=== PATIENT | female | born 1995 | race Caucasian/White ===

== ENCOUNTER 2017-05-18 12:19 | Observation (INO) | payer OTHER ==
[2017-05-18 12:55] VITALS: BP 120/64; PULSE 107
--- NOTE | 2017-05-19 14:43 | XRAY ---
Exam: OB ultrasound greater than 14 weeks from 05/18/2017. Comparison: OB ultrasound greater than 14 weeks from 04/04/2017 and 02/21/2017. Indication: Size measurements greater than dates. Findings: A single live intrauterine fetus is seen in the cephalic lie. cardiac activity was identified with a heart rate of 141 bpm. The placenta is anterior and grade one. There is no evidence of placenta previa. The amniotic fluid index measures 10.1 cm which is within normal limits. Measurements of the biparietal diameter, head circumference, abdominal circumference, and femur length suggest an average composite gestational age of 30 weeks 2 days which represents satisfactory intrauterine growth since the first OB ultrasound examination from 02/21/2017. Estimated due date based on today's size measurements is 07/25/2017 which is in excellent accordance with the gestational age by dates (also 07/25/2017). Estimated weight is 1412 g plus or -211.81 g (3 lbs. 2 oz.+ or -7 ounces) placing the fetus in the 16.3 percentile. The size ratios are all within normal limits except for a slightly elevated femur length to abdominal circumference ratio of 24.29 (normal being 20.00-24.00). Gross survey of the ventricles, spine, four-chamber heart, diaphragm, three-vessel umbilical cord, stomach, kidneys, and urinary bladder appear unremarkable. Impression: 1. Single live intrauterine fetus in the cephalic lie. Today's size measurements suggest a composite gestational age of 30 weeks 2 days which represents satisfactory intrauterine growth since the first OB ultrasound exam from 02/21/2017. Estimated due date is 07/25/2017, which is the same due date as that based on dates. 2. The placenta appears anterior. No placenta previa is seen. 3. Amniotic fluid index measures 10.1 cm which is within normal limits..
== END 2017-05-18 14:13 | disposition home or self-care (01) ==
LOC: OB 12:19
PROVIDERS: ADMIT Family Medicine; ATTEND Family Medicine
DX: Z34.03 Encounter for supervision of normal first pregnancy, third trimester (principal)
CPT/HCPCS: 76805; G0378

== ENCOUNTER 2017-06-02 20:13 | Observation (INO) | payer OTHER ==
[2017-06-02 21:08] LABS: Appearance SLIGHTLY CLOUDY (CLEAR); Bilirubin NEGATIVE (NEGATIVE); Blood NEGATIVE Ery/ul (0-5); Glucose NEGATIVE (NEGATIVE); Ketones NEGATIVE (NEGATIVE); Leukocyte Esterase NEGATIVE (NEGATIVE); Nitrite NEGATIVE (NEGATIVE); Protein,Urine Dip NEGATIVE (Negative); Specific Gravity 1.015 (1.005-1.025); Urobilinogen NORMAL mg/dL (0-1)
[2017-06-02 22:46] VITALS: BP 126/64; PULSE 74
== END 2017-06-02 22:20 | disposition home or self-care (01) ==
LOC: UNDOADMOB 20:13 → OB 20:13 → UNDODISOB 22:20
PROVIDERS: ADMIT Family Medicine; ATTEND Family Medicine
DX: Z34.03 Encounter for supervision of normal first pregnancy, third trimester (principal)
CPT/HCPCS: 81002; G0378

== ENCOUNTER 2017-06-12 10:39 | Observation (INO) | payer OTHER ==
[2017-06-12 10:58] VITALS: BP 134/70; PULSE 93
[2017-06-12 11:03] LABS: Hematocrit 34.2 % (35-47); Hemoglobin 11.2 gm/dl (12.0-16.0); Mean Cell Volume 81.8 fl (78-100); Mean Corpuscular Hgb Concent. 32.7 g/dl (32-36); Mean Platelet Volume 9.3 fl (6-9.5); Platelet Count 229 K/mm3 (150-450); Red Blood Count 4.18 M/mm3 (4.1-5.4); Red Cell Distribution Width 14.4 % (11.5-14.0); White Blood Count 12.3 K/mm3 (4.0-10.5)
[2017-06-12 11:04] LABS: Mean Corpuscular Hemoglobin 26.7 pg (26-32)
[2017-06-12 11:27] LABS: ALBUMIN 3.7 g/dL (3.5-5.0); ALKALINE PHOSPHATASE 118 U/L (38-126); ANION GAP 13.8 MEQ/L (5-15); BLOOD UREA NITROGEN 8 mg/dL (7-17); CHLORIDE 109 mmol/L (98-107); Calcium 9.4 mg/dL (8.4-10.2); Carbon Dioxide 20 mmol/L (22-30); Creatinine 1 0.66 mg/dL (0.52-1.04); Glucose 74 mg/dL (74-106); Potassium 4.3 mmol/L (3.5-5.1); SGOT/AST 11 U/L (14-36); SGPT/ALT 11 U/L (0-35); SODIUM 138 mmol/L (137-145); Total Protein 6.9 g/dL (6.3-8.2); Uric Acid 5.5 mg/dL (2.6-6.0)
== END 2017-06-12 12:10 | disposition home or self-care (01) ==
LOC: OB 10:39
PROVIDERS: ADMIT Family Medicine; ATTEND Family Medicine
DX: Z34.03 Encounter for supervision of normal first pregnancy, third trimester (principal)
CPT/HCPCS: 36415; 59025; 80053; 84550; 85027; G0378

== ENCOUNTER 2017-06-22 16:53 | Observation (INO) | payer OTHER ==
[2017-06-22] MEDS ORDERED: Lactated Ringers 1,000 ML IV SCH (17:00)
[2017-06-22 18:51] VITALS: BP 123/70; PULSE 85
== END 2017-06-22 18:52 | disposition home or self-care (01) ==
LOC: UNDOADMOB 16:53 → MED SURG 16:53 → UNDODISOB 18:52
PROVIDERS: ADMIT Family Medicine; ATTEND Family Medicine
DX: Z34.03 Encounter for supervision of normal first pregnancy, third trimester (principal)
CPT/HCPCS: 36415; 80048; G0378

== ENCOUNTER 2017-07-02 16:23 | Observation (INO) | payer OTHER ==
[2017-07-02 18:53] VITALS: BP 116/66; PULSE 69
--- NOTE | 2017-07-02 19:23 | XRAY ---
Indication: Bleeding. Two-dimensional OB ultrasound performed. Comparison: May 31, 2017. Again there is a single viable intrauterine in cephalic presentation. Normal four-chamber heart with heart rate 132 BPM. Normal three-vessel cord. Visualized stomach and bladder are unremarkable. Placenta again anterior without abruption/previa. BPD measures 9.04 cm corresponding to 36 weeks 4 days. HC measures 31.70 cm corresponding to 35 weeks 4 days. AC measures 31.54 cm corresponding to 35 weeks 3 days. FL measures 7.08 cm corresponding to 36 weeks 2 days. MIRIAM is 13.5 cm. Impression: Single viable intrauterine with mean gestational age 36 weeks 0 day. Normal progression of . No new/acute findings. Comment: Preliminary report was given.
== END 2017-07-02 18:54 | disposition home or self-care (01) ==
LOC: UNDOADMOB 16:23 → OB 16:23 → UNDODISOB 18:54
PROVIDERS: ADMIT Family Medicine; ATTEND Family Medicine
DX: Z34.03 Encounter for supervision of normal first pregnancy, third trimester (principal)
CPT/HCPCS: 76805; G0378

== ENCOUNTER 2017-07-19 12:07 | Inpatient (IN) | payer OTHER ==
[2017-07-19] MEDS ORDERED: BRETHINE 1 MG/ML SQ PRN (17:49)
[2017-07-19] MEDS ORDERED: Cervidil 10 MG VAG SCH (18:00)
[2017-07-19 18:51] LABS: BASOPHIL % 0.1 % (0.0-0.4); Basophil (Absolute #) 0.01 (0-0.4); Eosinophil % 0.9 % (0.00-5.0); Eosinophil (Absolute #) 0.12 (0-0.5); Granulocyte Absolute (ANC) 8.36 (1.4-6.9); Granulocytes % 64.4 % (36.0-66.0); Hematocrit 33.9 % (35-47); Hemoglobin 11.1 gm/dl (12.0-16.0); Lymphocytes % 25.4 % (24.0-44.0); Mean Cell Volume 81.7 fl (78-100); Mean Corpuscular Hemoglobin 26.7 pg (26-32); Mean Corpuscular Hgb Concent. 32.7 g/dl (32-36); Mean Platelet Volume 10.1 fl (6-9.5); Monocyte (Absolute #) 1.19 (0.0-1.3); Monocytes % 9.2 % (0.0-12.0); Platelet Count 228 K/mm3 (150-450); Red Blood Count 4.15 M/mm3 (4.1-5.4); Red Cell Distribution Width 14.9 % (11.5-14.0)
[2017-07-19 21:33] LABS: Amphetamine,Urine NEGATIVE (NEGATIVE); Barbiturate,Urine NEGATIVE (NEGATIVE); Benzodiazepine,Urine NEGATIVE (NEGATIVE); Cocaine,Urine NEGATIVE (NEGATIVE); Methadone,Urine NEGATIVE (NEGATIVE); Opiate,Urine NEGATIVE (NEGATIVE); PCP,Urine NEGATIVE (NEGATIVE); THC,Urine NEGATIVE (NEGATIVE)
[2017-07-20] MEDS: TYLENOL EXTRA STRENGTH 500 MG PO PRN ×2 (04:31→10:21)
[2017-07-20] MEDS ORDERED: PITOCIN 30 UNITS/ LR 500 ML 500 ML IV SCH (07:00)
[2017-07-20] MEDS: Lactated Ringers 1,000 ML IV SCH ×3 (08:07→23:40)
[2017-07-20 12:21] LABS: BASOPHIL % 0.1 % (0.0-0.4); Basophil (Absolute #) 0.01 (0-0.4); Eosinophil % 0.6 % (0.00-5.0); Eosinophil (Absolute #) 0.08 (0-0.5); Granulocyte Absolute (ANC) 8.75 (1.4-6.9); Granulocytes % 67.1 % (36.0-66.0); Hematocrit 35.5 % (35-47); Hemoglobin 11.6 gm/dl (12.0-16.0); Lymphocyte (Absolute #) 3.17 (1.0-4.6); Lymphocytes % 24.3 % (24.0-44.0); Mean Cell Volume 81.8 fl (78-100); Mean Corpuscular Hemoglobin 26.7 pg (26-32); Mean Corpuscular Hgb Concent. 32.7 g/dl (32-36); Mean Platelet Volume 9.9 fl (6-9.5); Monocyte (Absolute #) 1.03 (0.0-1.3); Monocytes % 7.9 % (0.0-12.0); Platelet Count 208 K/mm3 (150-450); Red Blood Count 4.34 M/mm3 (4.1-5.4); Red Cell Distribution Width 15.1 % (11.5-14.0)
[2017-07-20 14:23] LABS: ALBUMIN 3.3 g/dL (3.5-5.0); ALKALINE PHOSPHATASE 180 U/L (38-126); ANION GAP 13.4 MEQ/L (5-15); BLOOD UREA NITROGEN 10 mg/dL (7-17); CHLORIDE 109 mmol/L (98-107); Calcium 8.9 mg/dL (8.4-10.2); Carbon Dioxide 21 mmol/L (22-30); Creatinine 1 0.71 mg/dL (0.52-1.04); Glucose 71 mg/dL (74-106); Potassium 4.2 mmol/L (3.5-5.1); SGOT/AST 18 U/L (14-36); SGPT/ALT 11 U/L (0-35); SODIUM 139 mmol/L (137-145); Total Protein 6.3 g/dL (6.3-8.2)
[2017-07-20] MEDS ORDERED: Lactated Ringers 1,000 ML IV ONE (15:39)
[2017-07-20] MEDS ORDERED: Ephedrine Sulfate 50 MG/ML IV PRN (15:39)
[2017-07-20] MEDS: OB EPIDURAL NAROPIN/SUFENTANIL IN NACL EPIDURAL PRN (16:34)
[2017-07-20] MEDS: XYLOCAINE 1% HCL 20 ML MDV IJ PRN (16:34)
[2017-07-20] MEDS ORDERED: Marcaine MPF 0.25% 30 ML EPIDURAL ONE (22:08)
[2017-07-21] MEDS: OB EPIDURAL NAROPIN/SUFENTANIL IN NACL EPIDURAL PRN (00:35)
[2017-07-21 01:43] VITALS: O2SAT 98
[2017-07-21] MEDS ORDERED: Marcaine MPF 0.25% 30 ML EPIDURAL ONE ×2 (06:45→22:08)
[2017-07-21] MEDS ORDERED: Sensorcaine 0.25% 10 ML ONE (06:46)
[2017-07-21] MEDS ORDERED: CORTISONE 1% CREAM TP PRN (08:29)
[2017-07-21] MEDS ORDERED: TUCKS TP PRN (08:29)
[2017-07-21] MEDS ORDERED: LANSINOH 40 GM TOP PRN (08:29)
[2017-07-21] MEDS ORDERED: Dulcolax 10 MG SUPP PR PRN (08:29)
[2017-07-21] MEDS ORDERED: Dermoplast Spray TP PRN (08:29)
[2017-07-21] MEDS ORDERED: Anucort-HC SUPPOSITORY PR PRN (08:29)
[2017-07-21] MEDS ORDERED: NORCO 5/325 MG PO PRN (08:29)
[2017-07-21] MEDS ORDERED: Mylicon 80MG PO PRN (08:29)
[2017-07-21] MEDS: XYLOCAINE 1% HCL 20 ML MDV IJ PRN (09:37)
[2017-07-21] MEDS: PITOCIN 30 UNITS/ LR 500 ML 500 ML IV SCH ×2 (09:38→09:42)
[2017-07-21] MEDS: Lactated Ringers 1,000 ML IV SCH (09:42)
[2017-07-21] MEDS ORDERED: FERREX 150 PO SCH (10:00)
[2017-07-21 10:26] LABS: ABO TYPING A
[2017-07-21 10:27] LABS: ANTIBODY SCREEN NEGATIVE (NEGATIVE); RH TYPING NEGATIVE
[2017-07-21] MEDS: Colace 100 MG PO SCH ×2 (11:13→21:13)
[2017-07-21] MEDS ORDERED: Rhogam Plus 300 MCG IM ONE (12:59)
[2017-07-21] MEDS: MOTRIN 400 MG PO PRN (19:42)
[2017-07-22 05:51] LABS: BASOPHIL % 0.1 % (0.0-0.4); Basophil (Absolute #) 0.01 (0-0.4); Eosinophil % 1.1 % (0.00-5.0); Eosinophil (Absolute #) 0.13 (0-0.5); Granulocyte Absolute (ANC) 6.27 (1.4-6.9); Granulocytes % 52.8 % (36.0-66.0); Hematocrit 31.4 % (35-47); Hemoglobin 10.4 gm/dl (12.0-16.0); Lymphocyte (Absolute #) 4.32 (1.0-4.6); Lymphocytes % 36.5 % (24.0-44.0); Mean Cell Volume 81.8 fl (78-100); Mean Corpuscular Hgb Concent. 33.1 g/dl (32-36); Mean Platelet Volume 10.2 fl (6-9.5); Monocyte (Absolute #) 1.12 (0.0-1.3); Monocytes % 9.5 % (0.0-12.0); Platelet Count 213 K/mm3 (150-450); Red Blood Count 3.84 M/mm3 (4.1-5.4); White Blood Count 11.9 K/mm3 (4.0-10.5)
[2017-07-22] MEDS ORDERED: NON-FORMULARY ITEM (Prenatal Vits W-Ca,Fe,Fa(<1mg) [Prenatal] 1 TAB) PO SCH (10:00)
[2017-07-22] MEDS: Colace 100 MG PO SCH ×2 (10:47→21:13)
[2017-07-22] MEDS: FEOSOL 325 MG PO SCH (10:47)
[2017-07-22] MEDS: THERAGRAN MULTIVITAMIN PO SCH (10:48)
[2017-07-22] MEDS: MOTRIN 400 MG PO PRN ×2 (10:52→22:10)
[2017-07-22] MEDS: TYLENOL EXTRA STRENGTH 500 MG PO PRN ×2 (14:28→19:29)
[2017-07-23] MEDS: TYLENOL EXTRA STRENGTH 500 MG PO PRN (05:51)
[2017-07-23 08:35] VITALS: BP 134/71; PULSE 65
--- NOTE | 2017-07-23 08:45 | PCM.DS ---
Discharge Summary Date of Admission: 07/20/17 17:30 Admitting Physician: DICK WHITEHEAD Primary Care Provider: DICK HWITEHEAD Allergies Allergies No Known Drug Allergies Allergy (Verified 07/19/17 18:28) Hospital Summary - Hospital Course Hospital Course: 22 yo was admitted at 39+ weeks for IOL due to an increased BP in office at term (>140 systolic). Her uric acid was also found to be elevated. She had cervadil placed then after 12 h it was removed and pitocin was started. AROM at around 5 p.m. She delivered vaginally the next morning with no complications. She did have a second degree repair. Baby weighed 6lb 2oz, female, apgars 9 at 1 minute and 9 at 5 minutes. Mom has not had any post complications. Denies any symptoms. Taking ibuprofen for pain, sparingly. Will be discharged to home and will follow up with me in 4-6 weeks. - Vitals & Intake/Output Vital Signs: Vital Signs Temperature 98.2 F 07/23/17 08:00 Pulse Rate 65 07/23/17 08:00 Respiratory Rate 18 07/23/17 08:00 Blood Pressure 134/71 07/23/17 08:00 O2 Sat by Pulse Oximetry 98 07/21/17 00:30 Intake & Output: Intake & Output 07/20/17 07/21/17 07/22/17 07/23/17 11:59 11:59 11:59 11:59 Intake Total 1999 2716 1200 Output Total 601 Balance 19995 1200 Weight 117.934 kg - Lab Result Diagrams: 07/22/17 05:25 07/20/17 12:04 Micro Results-Entire Visit: Microbiology 07/19/17 20:35 Urine Culture - Final Catherized NO GROWTH Discharge Exam General Appearance: no apparent distress, alert Neurologic Exam: oriented x 3, cooperative Skin Exam: normal color, warm, dry, No rash Ears, Nose, Throat Exam: moist mucous membranes Respiratory Exam: normal breath sounds, lungs clear, No crackles/rales, No rhonchi, No wheezing Cardiovascular Exam: regular rate/rhythm, normal heart sounds, No murmur Gastrointestinal/Abdomen Exam: soft, other (fundus firm under umbilicus), No tenderness Extremity Exam: swelling (trace LE edema) Final Diagnosis/Problem List - Final Discharge Diagnosis/Problem (1) Vaginal delivery Current Visit: Yes Status: Acute Assessment & Plan: Doing great. Home today with baby. (2) Anemia Current Visit: Yes Status: Acute Assessment & Plan: Post hgb 10.4. Home on Fe for 1 mo. (3) induced hypertension, delivered, current hospitalization Current Visit: Yes Status: Acute Assessment & Plan: Most of her BP wnl but a few in 140s and one up to 150 systolic, several in 90s diastolic. home with BP cuff, check BP twice daily, write them down. Call if any > 160 systolic or > 110 diastolic. - Discharge Disposition: Home, Self-Care Condition: Good Prescriptions: New Docusate Sodium 100 mg [Colace 100 MG] 100 mg PO BID PRN #60 capsule PRN Reason: Constipation Ibuprofen 600 mg PO TID PRN #35 tablet PRN Reason: Pain Continue Vits W-Ca,Fe,FA(<1Mg) [] 1 tab PO DAILY Ferrous Sulfate [Iron] 325 mg PO DAILY Additional Instructions: Check BP twice daily. Call [facility] or go to labor room if any BP over 160 on the top or over 110 on the bottom. Let me know if persistent blood pressure on top over 140 and on bottom over 90. Follow up with: DICK WHITEHEAD [Primary Care Provider] - 1 Week Forms: OB Discharge Instructions
[2017-07-23] MEDS: THERAGRAN MULTIVITAMIN PO SCH (10:29)
[2017-07-23] MEDS: Colace 100 MG PO SCH (10:29)
[2017-07-23] MEDS: FEOSOL 325 MG PO SCH (10:29)
== END 2017-07-23 12:45 | disposition home or self-care (01) | DRG 775 ==
LOC: OB 17:30 → OBSVTOIN 07-20 17:30
PROVIDERS: ADMIT Family Medicine; ATTEND Family Medicine
PROC: 10E0XZZ Delivery of Products of Conception, External Approach (ICD-10-PCS; principal; 2017-07-21)
PROC: 0KQM0ZZ Repair Perineum Muscle, Open Approach (ICD-10-PCS; 2017-07-21)
PROC: 10907ZC Drainage of Amniotic Fluid, Therapeutic from Products of Conception, Via Natural or Artificial Opening (ICD-10-PCS; 2017-07-21)
DX: O75.5 Delayed delivery after artificial rupture of membranes (principal); O70.1 Second degree perineal laceration during delivery; Z3A.39 39 weeks gestation of pregnancy; Z37.0 Single live birth; R03.0 Elevated blood-pressure reading, without diagnosis of hypertension
CPT/HCPCS: 36415; 80053; 80307; 84550; 85025; 85461; 86850; 86900; 86901; 87086; 96372; G0378; J2590; J2790; J2795; A9270-GY